=== PATIENT | female | born 1970 | race Caucasian/White ===

== ENCOUNTER 2024-07-31 10:29 | Day surgery (SDC) | payer BC ==
[2024-07-31] MEDS ORDERED: Lactated Ringers 1,000 ML IV SCH (11:00)
[2024-07-31] MEDS ORDERED: Lactated Ringers 1,000 ML IV ONE (11:03)
[2024-07-31 11:10] LABS: HCG URINE TEST NEGATIVE (NEGATIVE)
[2024-07-31 11:11] VITALS: RESP 16
[2024-07-31] MEDS ORDERED: propofoL IV ONE ×2 (12:11→12:22)
[2024-07-31] MEDS ORDERED: Xylocaine-Mpf 2% 5 Ml Vial ONE (12:11)
[2024-07-31] MEDS ORDERED: Versed 2 MG/2 ML Injection ONE (12:11)
[2024-07-31 13:06] VITALS: PULSE 69; O2SAT 99
[2024-07-31 13:12] VITALS: BP 145/93
[2024-07-31 13:31] VITALS: TEMP 97.6
--- NOTE | 2024-08-01 14:49 | OP ---
SURGERY DATE/TIME: 07/31/2024 [id number] PREOPERATIVE DIAGNOSIS: Family history of colorectal cancer, first-degree relative less than age 50. POSTOPERATIVE DIAGNOSES: 1) Colon polyps. 2) Family history of colon cancer, first-degree relative less than age 50. PROCEDURE PERFORMED: Colonoscopy with multiple polypectomy. SURGEON: Remi Carlin MD. ANESTHESIA: IV anesthesia. PATIENT CONDITION: Stable. COMPLICATIONS: None. SPECIMENS: Polyps x3. INDICATION: The patient is a 54-year-old female that has her brother diagnosed with colon cancer less than age 50. She is a high-risk screening. She elected to proceed with that. FINDINGS: 1) Good preparation. 2) Cecal 4 mm polyp, hot snare. 3) Descending 2 mm hyperplastic-appearing polyp, forceps. 4) Rectal polyp 2 mm, forceps. DESCRIPTION OF PROCEDURE AND FINDINGS: Patient was brought to the endoscopy suite. Routinely positioned and prepared. Time-out performed. IV anesthesia induced by Anesthesia. External examination is normal. The colonoscope is inserted and advanced to the cecum, confirmed by the ileocecal valve, as well as the appendiceal orifice. At the cecum, there was a 4 mm sessile polyp taken with a hot snare completely. Sent for pathology. Withdrawal time was greater than 6 minutes. The preparation was [place] good preparation. In the descending colon, there was a 2 mm hyperplastic-appearing polyp taken with cold forceps. In the rectum, there was a 2 mm hyperplastic-appearing polyp taken with cold forceps. Retroflexion was normal. The scope was withdrawn. The patient tolerated the procedure well and was taken to Recovery in stable condition. RECOMMENDATIONS: Follow up in office within a month for pathology results. Depending on pathology, would probably be a 3 to 5-year followup.
== END 2024-07-31 13:31 | disposition home or self-care (01) ==
LOC: SDC 10:29
PROVIDERS: ATTEND Surgery
DX: Z80.0 Family history of malignant neoplasm of digestive organs (principal); K62.1 Rectal polyp; D12.0 Benign neoplasm of cecum
CPT/HCPCS: 81025; J2250; J2704